=== PATIENT | female | born 1950 | race Two or more races ===

== ENCOUNTER 2022-03-11 19:46 | Inpatient (IN) | payer MEDICARE, MEDICAID ==
[~2022-03-11] VITALS: Ht 162.6 cm; Wt 88.0 kg
[2022-03-11] MEDS ORDERED: SODIUM CHLORIDE 0.9% 1,000 ML IV ONE (20:45)
[2022-03-11 22:48] LABS: Basophils # (auto) 0.1 10 ^3/uL (0-0.2); Basophils % (auto) 0.3 % (0.0-2.0); Eosinophils # (auto) 0 10 ^3/uL (0-0.8); Hematocrit 43.3 % (36.0-46.0); Lymphocytes # (auto) 1.1 10 ^3/uL (0.4-5.4); Lymphocytes % (auto) 5.2 % (10.0-50.0); Mean Corpuscular Hemoglobin 30.8 pg (28.0-32.0); Mean Corpuscular Hgb Conc. 32.3 g/dL (32.0-36.0); Mean Corpuscular Volume 95.2 fL (80.0-100.0); Monocytes # (auto) 0.9 10 ^3/uL (0-1.3); Monocytes % (auto) 4.4 % (0.0-12.0); Neutrophils # (auto) 18.6 10 ^3/uL (1.6-8.6); Neutrophils % (auto) 90.1 % (37.0-80.0); Nucleated Red Blood Cells % 0.1 %; Red Blood Cells 4.55 10^6/uL (4.0-5.20); Red Cell Distribution Width 14.7 % (11.8-14.3); White Blood Cell 20.7 10^3/uL (4.4-10.8)
[2022-03-11 23:07] LABS: Lactic Acid w/Reflex 2.2 mmol/L (0.4-2.0)
[2022-03-11 23:08] LABS: INR 1.07 (0.9-1.15); Partial Thromboplastin Time 26.2 sec (24.6-33.4)
[2022-03-11 23:10] LABS: Albumin 3.5 g/dL (3.4-5.0); Anion Gap 10 (5-15); Blood Alcohol < 3.0 mg/dL (0-5); Blood Urea Nitrogen 38 mg/dL (7-18); Calcium 9.2 mg/dL (8.5-10.1); Carbon Dioxide 17 mmol/L (21-32); Chloride 108 mmol/L (98-107); Glucose 160 mg/dL (74-106); Potassium 4.9 mmol/L (3.5-5.1); Sodium 135 mmol/L (136-145)
[2022-03-11 23:13] LABS: Alanine Aminotransferase 18 U/L (13-56); Alkaline Phosphatase 79 U/L (45-117); Aspartate Aminotransferase 17 U/L (15-37); BUN/Creatinine Ratio 30.4; Bilirubin, Total 0.7 mg/dL (0.2-1.0); GFR African American 54 mL/min; GFR Non-African American 45 mL/min; Total Protein 8.4 g/dL (6.4-8.2)
[2022-03-12] MEDS ORDERED: PIPERACILLIN-TAZOB 3.375GM 100 ML IV ONE (00:45)
[2022-03-12] MEDS ORDERED: HEPARIN SODIUM (PORCINE) 5000 UNITS/ML 1ML VIAL IV ONE ×2 (00:45→06:00)
[2022-03-12] MEDS ORDERED: VANCOMYCIN 1GM/250ML 250 ML IV ONE (00:45)
[2022-03-12] MEDS ORDERED: SODIUM CHLORIDE 0.9% 1,000 ML IV ONE (00:45)
[2022-03-12] MEDS ORDERED: HEPARIN DRIP/D5W 100UNITS/ML 250 ML IV SCH (00:45)
[2022-03-12] MEDS ORDERED: DEXTROSE (50%) 50ML SYRG IV PRN (01:15)
[2022-03-12] MEDS ORDERED: ONDANSETRON HCL 4 MG/2 ML VIAL IV PRN (01:15)
[2022-03-12] MEDS ORDERED: VANCOMYCIN PER PHARMACY 0 MG IV SCH (01:15)
[2022-03-12] MEDS ORDERED: ACETAMINOPHEN 325 MG TAB PO PRN (01:15)
[2022-03-12] MEDS ORDERED: ACETAMINOPHEN 650 MG RECT SUPP PR PRN ×2 (02:30→02:45)
[2022-03-12] MEDS ORDERED: SODIUM CHLORIDE 0.9% 500 ML IV ONE (02:45)
[2022-03-12] MEDS ORDERED: NITROGLYCERIN 0.4 MG SL TAB SL PRN (02:45)
[2022-03-12] MEDS ORDERED: MORPHINE SULFATE INJ 2 MG/ml SYRG IV PRN (02:45)
[2022-03-12] MEDS: SODIUM CHLORIDE 0.9% 1,000 ML IV SCH ×2 (02:53→18:06)
[2022-03-12 03:52] LABS: Urine Bacteria FEW /hpf (None Seen); Urine Blood 3+ /uL (Negative); Urine Hyaline Cast FEW /lpf (0 - 2); Urine Mucus FEW (None Seen); Urine Specific Gravity 1.012 (1.001-1.035); Urine WBC 186 /hpf (0 - 5)
[2022-03-12 03:55] LABS: Basophils # (auto) 0 10 ^3/uL (0-0.2); Basophils % (auto) 0.2 % (0.0-2.0); Eosinophils # (auto) 0 10 ^3/uL (0-0.8); Hematocrit 38.8 % (36.0-46.0); Lymphocytes # (auto) 0.9 10 ^3/uL (0.4-5.4); Lymphocytes % (auto) 4.6 % (10.0-50.0); Mean Corpuscular Hemoglobin 31.4 pg (28.0-32.0); Mean Corpuscular Hgb Conc. 33.4 g/dL (32.0-36.0); Monocytes # (auto) 0.9 10 ^3/uL (0-1.3); Monocytes % (auto) 4.7 % (0.0-12.0); Neutrophils # (auto) 17.2 10 ^3/uL (1.6-8.6); Neutrophils % (auto) 90.5 % (37.0-80.0); Red Blood Cells 4.13 10^6/uL (4.0-5.20); Red Cell Distribution Width 14.7 % (11.8-14.3)
[2022-03-12 03:57] LABS: Alcohol, Urine < 3.0 mg/dL (0-10); Amphetamine Screen, Urine NEGATIVE (NEGATIVE); Barbiturate Scree,Urine NEGATIVE (NEGATIVE); Benzodiazephine Screen, Urine NEGATIVE (NEGATIVE); Cannabinoid Screen, Urine NEGATIVE (NEGATIVE); Cocaine Screen, Urine NEGATIVE (NEGATIVE); Opiate Scree,Urine NEGATIVE (NEGATIVE); Phencyclidine Screen, Urine NEGATIVE (NEGATIVE)
[2022-03-12 04:00] LABS: Albumin 3.1 g/dL (3.4-5.0); Calcium 8.6 mg/dL (8.5-10.1); Potassium 4.6 mmol/L (3.5-5.1)
[2022-03-12 04:04] LABS: BUN/Creatinine Ratio 31.7; Bilirubin, Total 0.7 mg/dL (0.2-1.0)
[2022-03-12 04:48] LABS: INR 1.18 (0.9-1.15); Partial Thromboplastin Time 31.3 sec (24.6-33.4)
[2022-03-12] MEDS: PIPERACILLIN-TAZOB 2.25GM 50 ML IV SCH ×3 (06:31→18:06)
[2022-03-12] MEDS: ACCU-CHEK COMFORT CURVE STRIP VI SCH ×4 (07:52→22:48)
[2022-03-12] MEDS: InsuLIN REG 1unit/0.01ml Soln (100units/ml) SC SCH ×4 (07:52→23:02)
[2022-03-12] MEDS: AZITHROMYCIN 500MG/ 250ML 250 ML IV SCH (08:49)
[2022-03-12] MEDS ORDERED: DexAMETHasone SOD PHOS 10MG/1ML VIAL INJ IV ONE (12:15)
[2022-03-12] MEDS ORDERED: ZINC SULFATE 220mg CAP or TAB PO ONE (12:15)
[2022-03-12] MEDS ORDERED: CHOLECALCIFEROL (VITD3) 2,000 UNIT CAP/TAB PO ONE (12:15)
[2022-03-12] MEDS ORDERED: REMDESIVIR PER PHARMACY 0 ML IV SCH (13:15)
[2022-03-12] MEDS: IPRATROPIUM BROM 0.5 MG/2.5ML INH SOL NEB SCH ×3 (14:00→22:10)
[2022-03-12] MEDS ORDERED: REMDESIVIR 100mg 100 MG in SODIUM CHL 0.9% 230 ML IV SCH (15:00)
[2022-03-12] MEDS ORDERED: REMDESIVIR 200 MG in NS 210ml LOADING DOSE ADULT IV ONE (15:00)
[2022-03-12] MEDS: ALBUTEROL SULF 2.5 MG/0.5ML(0.5%) NEB SOLN NEB PRN ×2 (18:40→22:10)
[2022-03-12 19:35] LABS: INR 1.24 (0.9-1.15)
[2022-03-12] MEDS: HYDROcodone-ACET 5/325MG TAB PO PRN (19:48)
[2022-03-12 20:31] VITALS: BP 139/103
[2022-03-12 22:00] VITALS: BP 145/65
[2022-03-12] MEDS: ENOXAPARIN SOD 100 MG/1 ML SYRINGE SC SCH (22:47)
[2022-03-12] MEDS: ASCORBIC ACID 500 MG TAB PO SCH (22:47)
[2022-03-13] MEDS: PIPERACILLIN-TAZOB 2.25GM 50 ML IV SCH ×4 (00:17→17:40)
[2022-03-13] MEDS: HYDROcodone-ACET 5/325MG TAB PO PRN ×5 (00:18→22:03)
[2022-03-13] MEDS: IPRATROPIUM BROM 0.5 MG/2.5ML INH SOL NEB SCH ×6 (02:11→21:43)
[2022-03-13] MEDS ORDERED: INFLUENZA QUAD 2022-2023 0.5 ML SYRG IM ONE (02:45)
[2022-03-13 05:00] VITALS: BP 117/65
[2022-03-13 06:30] LABS: Basophils # (auto) 0 10 ^3/uL (0-0.2); Basophils % (auto) 0.2 % (0.0-2.0); Eosinophils # (auto) 0 10 ^3/uL (0-0.8); Hemoglobin 12.2 g/dL (12.2-16.2); Lymphocytes # (auto) 0.9 10 ^3/uL (0.4-5.4); Monocytes # (auto) 0.2 10 ^3/uL (0-1.3); Monocytes % (auto) 1.6 % (0.0-12.0); Neutrophils # (auto) 11.4 10 ^3/uL (1.6-8.6); Neutrophils % (auto) 91.2 % (37.0-80.0); Red Blood Cells 3.94 10^6/uL (4.0-5.20); Red Cell Distribution Width 15.1 % (11.8-14.3); White Blood Cell 12.5 10^3/uL (4.4-10.8)
[2022-03-13 06:52] LABS: Albumin 2.6 g/dL (3.4-5.0); BUN/Creatinine Ratio 32.9; Bilirubin, Total 0.3 mg/dL (0.2-1.0); Calcium 8.5 mg/dL (8.5-10.1); Potassium 4.1 mmol/L (3.5-5.1); Total Protein 6.7 g/dL (6.4-8.2)
[2022-03-13] MEDS: ACCU-CHEK COMFORT CURVE STRIP VI SCH ×4 (06:54→22:04)
[2022-03-13] MEDS: InsuLIN REG 1unit/0.01ml Soln (100units/ml) SC SCH ×4 (06:57→22:06)
[2022-03-13] MEDS: ALBUTEROL SULF 2.5 MG/0.5ML(0.5%) NEB SOLN NEB PRN ×4 (07:21→21:43)
[2022-03-13 09:00] VITALS: BP 165/84
[2022-03-13] MEDS: AZITHROMYCIN 500MG/ 250ML 250 ML IV SCH (10:29)
[2022-03-13] MEDS: ENOXAPARIN SOD 100 MG/1 ML SYRINGE SC SCH ×2 (10:30→22:02)
[2022-03-13] MEDS: DexAMETHasone SOD PHOS 10MG/1ML VIAL INJ IV SCH (10:30)
[2022-03-13] MEDS: ASCORBIC ACID 500 MG TAB PO SCH ×2 (10:30→22:03)
[2022-03-13] MEDS: ZINC SULFATE 220mg CAP or TAB PO SCH (10:30)
[2022-03-13] MEDS: CHOLECALCIFEROL (VITD3) 2,000 UNIT CAP/TAB PO SCH (10:31)
[2022-03-13] MEDS ORDERED: IOHEXOL 350 MG/ML 100ML IJ ONE (11:55)
[2022-03-13] MEDS: SODIUM CHLORIDE 0.9% 1,000 ML IV SCH (12:00)
[2022-03-13 13:00] VITALS: BP 142/75
[2022-03-13] MEDS: REMDESIVIR 100mg 100 MG in SODIUM CHL 0.9% 230 ML IV SCH (15:44)
[2022-03-13 16:31] VITALS: BP 158/81
[2022-03-13 22:00] VITALS: BP 163/84
[2022-03-13] MEDS: ATORVASTATIN 20 MG TAB PO SCH (22:03)
[2022-03-13] MEDS: hydrALAZINE HCL 20 MG/ML VL IV PRN (22:04)
[2022-03-14] MEDS: IPRATROPIUM BROM 0.5 MG/2.5ML INH SOL NEB SCH ×4 (02:00→14:37)
[2022-03-14] MEDS: PIPERACILLIN-TAZOB 2.25GM 50 ML IV SCH ×4 (02:08→18:18)
[2022-03-14] MEDS: HYDROcodone-ACET 5/325MG TAB PO PRN ×4 (02:17→22:08)
[2022-03-14] MEDS: SODIUM CHLORIDE 0.9% 1,000 ML IV SCH (03:15)
[2022-03-14 05:00] VITALS: BP 155/85
[2022-03-14] MEDS: DOCUSATE SOD 100 MG CAP PO PRN ×2 (05:54→21:46)
[2022-03-14] MEDS: hydrALAZINE HCL 20 MG/ML VL IV PRN ×2 (05:55→21:53)
[2022-03-14] MEDS: ACCU-CHEK COMFORT CURVE STRIP VI SCH ×4 (07:01→21:46)
[2022-03-14] MEDS: InsuLIN REG 1unit/0.01ml Soln (100units/ml) SC SCH ×4 (07:03→21:48)
[2022-03-14 07:23] LABS: Albumin 2.7 g/dL (3.4-5.0); BUN/Creatinine Ratio 32.1; Bilirubin, Total 0.4 mg/dL (0.2-1.0); Calcium 8.6 mg/dL (8.5-10.1); Total Protein 6.8 g/dL (6.4-8.2)
[2022-03-14 08:00] VITALS: BP 146/65
[2022-03-14] MEDS: AZITHROMYCIN 500MG/ 250ML 250 ML IV SCH (09:50)
[2022-03-14] MEDS: DexAMETHasone SOD PHOS 10MG/1ML VIAL INJ IV SCH (09:50)
[2022-03-14] MEDS: ASPirin 81 mg TAB PO SCH (09:50)
[2022-03-14] MEDS: ASCORBIC ACID 500 MG TAB PO SCH ×2 (09:51→21:46)
[2022-03-14] MEDS: ENOXAPARIN SOD 100 MG/1 ML SYRINGE SC SCH ×2 (09:51→21:46)
[2022-03-14] MEDS: CHOLECALCIFEROL (VITD3) 2,000 UNIT CAP/TAB PO SCH (09:51)
[2022-03-14] MEDS: ZINC SULFATE 220mg CAP or TAB PO SCH (09:51)
[2022-03-14 12:00] VITALS: BP 142/78
[2022-03-14 16:00] VITALS: BP 145/72
[2022-03-14] MEDS: REMDESIVIR 100mg 100 MG in SODIUM CHL 0.9% 230 ML IV SCH (17:15)
[2022-03-14] MEDS: ATORVASTATIN 20 MG TAB PO SCH (21:46)
[2022-03-14 22:00] VITALS: BP 172/94
[2022-03-14] MEDS ORDERED: IPRATROPIUM BROM 0.5 MG/2.5ML INH SOL NEB PRN (22:00)
[2022-03-14] MEDS ORDERED: GABA-339 PO (23:42)
[2022-03-15] VITALS (7 sets, daily range): BP systolic 127–160; BP diastolic 63–114
[2022-03-15] MEDS ORDERED: HYDROcodone-ACET 5/325MG TAB PO ONE (01:00)
[2022-03-15] MEDS: PIPERACILLIN-TAZOB 2.25GM 50 ML IV SCH ×2 (02:35→06:31)
[2022-03-15] MEDS: HYDROcodone-ACET 5/325MG TAB PO PRN ×3 (02:35→21:21)
[2022-03-15] MEDS: SODIUM CHLORIDE 0.9% 1,000 ML IV SCH ×2 (02:41→12:50)
[2022-03-15 05:27] LABS: Potassium 3.6 mmol/L (3.5-5.1)
[2022-03-15 05:32] LABS: Albumin 2.9 g/dL (3.4-5.0); BUN/Creatinine Ratio 32.4; Calcium 9.4 mg/dL (8.5-10.1)
[2022-03-15 05:42] LABS: Bilirubin, Total 0.4 mg/dL (0.2-1.0)
[2022-03-15] MEDS: InsuLIN REG 1unit/0.01ml Soln (100units/ml) SC SCH ×4 (06:51→21:20)
[2022-03-15] MEDS: ACCU-CHEK COMFORT CURVE STRIP VI SCH ×4 (06:51→21:22)
[2022-03-15] MEDS ORDERED: MEROPENEM 500MG IVPB 50 ML IV SCH (10:00)
[2022-03-15] MEDS: AZITHROMYCIN 250 MG TAB PO SCH (10:30)
[2022-03-15] MEDS: ASPirin 81 mg TAB PO SCH (10:30)
[2022-03-15] MEDS: CHOLECALCIFEROL (VITD3) 2,000 UNIT CAP/TAB PO SCH (10:31)
[2022-03-15] MEDS: ASCORBIC ACID 500 MG TAB PO SCH ×2 (10:31→21:22)
[2022-03-15] MEDS: ZINC SULFATE 220mg CAP or TAB PO SCH (10:31)
[2022-03-15] MEDS: ENOXAPARIN SOD 100 MG/1 ML SYRINGE SC SCH ×2 (10:31→21:22)
[2022-03-15] MEDS: DexAMETHasone SOD PHOS 10MG/1ML VIAL INJ IV SCH (10:32)
[2022-03-15] MEDS: CeftoloZANE-TAZOB 1g/0.5g in D5W 5% 100 ML IV SCH ×2 (14:04→21:22)
[2022-03-15] MEDS: GABAPENTIN 300 MG CAP PO SCH ×2 (14:04→21:21)
[2022-03-15] MEDS: REMDESIVIR 100mg 100 MG in SODIUM CHL 0.9% 230 ML IV SCH (15:34)
[2022-03-15] MEDS: hydrALAZINE HCL 20 MG/ML VL IV PRN (17:06)
[2022-03-15] MEDS: ATORVASTATIN 20 MG TAB PO SCH (21:21)
[2022-03-16 05:00] VITALS: BP 119/75
[2022-03-16] MEDS: SODIUM CHLORIDE 0.9% 1,000 ML IV SCH ×2 (05:15→23:43)
[2022-03-16 05:32] LABS: Albumin 2.4 g/dL (3.4-5.0); Calcium 8.2 mg/dL (8.5-10.1); Potassium 3.4 mmol/L (3.5-5.1)
[2022-03-16 05:35] LABS: BUN/Creatinine Ratio 31.5; Bilirubin, Total 0.5 mg/dL (0.2-1.0); Total Protein 6.4 g/dL (6.4-8.2)
[2022-03-16] MEDS: CeftoloZANE-TAZOB 1g/0.5g in D5W 5% 100 ML IV SCH ×3 (06:20→22:20)
[2022-03-16] MEDS: GABAPENTIN 300 MG CAP PO SCH ×3 (06:20→22:21)
[2022-03-16] MEDS: InsuLIN REG 1unit/0.01ml Soln (100units/ml) SC SCH ×4 (06:22→22:22)
[2022-03-16] MEDS: ACCU-CHEK COMFORT CURVE STRIP VI SCH ×4 (06:22→22:21)
[2022-03-16 08:00] VITALS: BP 134/76
[2022-03-16 08:05] VITALS: BP 134/76
[2022-03-16] MEDS ORDERED: APIXABAN 5 MG TAB PO SCH (10:00)
[2022-03-16] MEDS: DexAMETHasone SOD PHOS 10MG/1ML VIAL INJ IV SCH (10:40)
[2022-03-16] MEDS: AZITHROMYCIN 250 MG TAB PO SCH (10:41)
[2022-03-16] MEDS: ASCORBIC ACID 500 MG TAB PO SCH ×2 (10:41→22:21)
[2022-03-16] MEDS: APIXABAN 5 MG TAB PO SCH ×2 (10:41→22:20)
[2022-03-16] MEDS: CHOLECALCIFEROL (VITD3) 2,000 UNIT CAP/TAB PO SCH (10:41)
[2022-03-16] MEDS: ZINC SULFATE 220mg CAP or TAB PO SCH (10:41)
[2022-03-16] MEDS: ASPirin 81 mg TAB PO SCH (10:42)
[2022-03-16] MEDS: HYDROcodone-ACET 5/325MG TAB PO PRN ×2 (10:42→22:21)
[2022-03-16 12:00] VITALS: BP 146/71
[2022-03-16 16:00] VITALS: BP 164/79
[2022-03-16] MEDS: hydrALAZINE HCL 20 MG/ML VL IV PRN (17:10)
[2022-03-16] MEDS: REMDESIVIR 100mg 100 MG in SODIUM CHL 0.9% 230 ML IV SCH (20:15)
[2022-03-16 22:00] VITALS: BP 140/66
[2022-03-16] MEDS: ATORVASTATIN 20 MG TAB PO SCH (22:20)
[2022-03-17 05:00] VITALS: BP 111/47
[2022-03-17] MEDS: GABAPENTIN 300 MG CAP PO SCH (05:47)
[2022-03-17] MEDS: CeftoloZANE-TAZOB 1g/0.5g in D5W 5% 100 ML IV SCH (05:48)
[2022-03-17] MEDS: ACCU-CHEK COMFORT CURVE STRIP VI SCH ×2 (06:01→11:49)
[2022-03-17] MEDS: InsuLIN REG 1unit/0.01ml Soln (100units/ml) SC SCH ×2 (06:01→11:54)
[2022-03-17 08:00] VITALS: BP 121/60
[2022-03-17] MEDS ORDERED: APIX5TAB PO (08:12)
[2022-03-17] MEDS ORDERED: ZINC220C10 PO (08:12)
[2022-03-17] MEDS ORDERED: ASPI-498 PO (08:12)
[2022-03-17] MEDS ORDERED: AZIT500T66 PO (08:12)
[2022-03-17] MEDS ORDERED: CHOL20006 PO (08:12)
[2022-03-17] MEDS ORDERED: ATO40T PO (08:12)
[2022-03-17] MEDS ORDERED: ALBUAER3 IN (08:12)
[2022-03-17] MEDS ORDERED: ASCO500T11 PO (08:12)
[2022-03-17 08:53] VITALS: BP 121/60
[2022-03-17] MEDS: DexAMETHasone SOD PHOS 10MG/1ML VIAL INJ IV SCH (10:02)
[2022-03-17] MEDS: ASCORBIC ACID 500 MG TAB PO SCH (10:03)
[2022-03-17] MEDS: ASPirin 81 mg TAB PO SCH (10:03)
[2022-03-17] MEDS: APIXABAN 5 MG TAB PO SCH (10:03)
[2022-03-17] MEDS: ZINC SULFATE 220mg CAP or TAB PO SCH (10:03)
[2022-03-17] MEDS: CHOLECALCIFEROL (VITD3) 2,000 UNIT CAP/TAB PO SCH (10:04)
[2022-03-17 11:12] VITALS: BP 121/60
[2022-03-17] MEDS: HYDROcodone-ACET 5/325MG TAB PO PRN (11:55)
[2022-03-17 13:00] VITALS: BP 114/72
[2022-03-23] MEDS ORDERED: APIXABAN 5 MG TAB PO SCH (10:00)
== END 2022-03-17 14:08 | disposition home health service (06) | DRG 871 ==
LOC: EDBD 19:46 → ER 19:50 → TELE 03-12 02:35 → TELE-CENTR 03-12 21:25
PROVIDERS: ADMIT Nurse Practitioner Family; ATTEND Family Medicine
PROC: XW033E5 Introduction of Remdesivir Anti-infective into Peripheral Vein, Percutaneous Approach, New Technology Group 5 (ICD-10-PCS; principal; 2022-03-12)
PROC: 05HC33Z Insertion of Infusion Device into Left Basilic Vein, Percutaneous Approach (ICD-10-PCS; 2022-03-15)
PROC: B54NZZA Ultrasonography of Left Upper Extremity Veins, Guidance (ICD-10-PCS; 2022-03-15)
PROC: 3E02340 Introduction of Influenza Vaccine into Muscle, Percutaneous Approach (ICD-10-PCS; 2022-03-17)
DX: A41.89 Other specified sepsis (principal); G93.41 Metabolic encephalopathy; J12.82 Pneumonia due to coronavirus disease 2019; I21.A1 Myocardial infarction type 2; J81.0 Acute pulmonary edema; J96.01 Acute respiratory failure with hypoxia; U07.1 COVID-19; R65.21 Severe sepsis with septic shock; N17.9 Acute kidney failure, unspecified; N39.0 Urinary tract infection, site not specified; I82.441 Acute embolism and thrombosis of right tibial vein; Z16.24 Resistance to multiple antibiotics; E11.40 Type 2 diabetes mellitus with diabetic neuropathy, unspecified; E11.65 Type 2 diabetes mellitus with hyperglycemia; E66.9 Obesity, unspecified; F17.210 Nicotine dependence, cigarettes, uncomplicated; I11.9 Hypertensive heart disease without heart failure; B96.5 Pseudomonas (aeruginosa) (mallei) (pseudomallei) as the cause of diseases classified elsewhere; E78.00 Pure hypercholesterolemia, unspecified; Z68.33 Body mass index [BMI] 33.0-33.9, adult; Z89.421 Acquired absence of other right toe(s)
CPT/HCPCS: 36415; 36600; 70450; 71045; 71275; 73700; 80053; 80307; 80320; 81001; 82805; 82962; 83036; 83605; 83735; 84484; 85025; 85379; 85610; 85730; 87040; 87086; 87088; 87186; 87426; 93005; 93306; 93970; 94640; 96361; 96365; 97163; G0378; J1100; J1815; J2543; J7060